=== PATIENT | female | born 1985 | race Caucasian/White ===

== ENCOUNTER 2024-07-19 12:54 | Emergency (ER) | payer OTHER, SELFPAY ==
[2024-07-19 12:57] VITALS: BP 147/90; PULSE 103; RESP 18; TEMP 37.2; O2SAT 98; BMI 21.8
--- NOTE | 2024-07-19 12:59 | ED_ITS ---
HPI - General Adult General Chief complaint: Psychiatric Symptoms Stated complaint: medication Time Seen by Provider: 07/19/24 13:10 Source: patient, family (mother) and RN notes reviewed Mode of arrival: ambulatory Limitations: no limitations History of Present Illness ED Provider: Mckenzie GREEN narrative: 38-year-old female with past medical history significant for anxiety, depression presents for evaluation of ?medication refill. ? The patient reports that she has been in a program for the last 8 years where she has been receiving clonazepam and Adderall. She found out about 2 months ago that this program was closing abruptly. She last received prescriptions for both medications in April of last year and has been trying to use the medication sparingly/she does not run out completely. She has a new appointment with a different program and new prescriber that she believes is on 08/02/2024. However she reports that she was been having increasing anxiety, depression and ?dark thoughts. ? She reports that she occasionally ?just want to disappear. ? She denies any active suicidal ideation or plan. Related Data Previous Rx's ?Medication ?Instructions ?Recorded clonazepam 1 mg tablet 1 - 2 mg (1 - 2 x 1 mg) PO BID 2 07/19/24 weeks #45 tabs dextroamphetamine-amphetamine 20 20 mg PO DAILY #14 tabs 07/19/24 mg tablet (Adderall) Allergies Allergy/AdvReac Type Severity Reaction Status Date / Time Unable to Assess Allergy Verified 07/19/24 13:56 Review of Systems 2 Constitutional: Constitutional: Denies body ache(s), Denies chills and Denies fever(s) ENT: Denies vertigo Cardiovascular: Cardiovascular: Denies chest pain Gastrointestinal: Gastrointestinal: Denies abdominal pain Neurologic: Denies vertigo Psychiatric: Psychiatric: Reports anxiety, Reports depression, Denies auditory hallucinations, Denies visual hallucinations, Denies homicidal ideation and Reports suicidal ideation PMFSH Social History Social History Smoked in Last 30 Days: No Use of substances other than those prescribed or required for medical reasons: No Advance Directives: No Advance Directives Information Provided: Yes Do you have a plan to hurt others: No Plan Patient : No Physical Exam ED Vital Signs: Vital Signs - 24 hr 07/19/24 12:57 07/19/24 14:55 07/19/24 15:45 Temperature 99.0 F 98.0 F Pulse Rate 103 H 68 Respiratory Rate 18 16 16 Blood Pressure 147/90 H 108/67 Pulse Oximetry 98 97 Oxygen Delivery Method Room Air Room Air BMI result Body Mass Index 21.8 Const General: healthy appearing, comfortable, no acute distress, alert and awake Nutritional Appearance: well nourished Orientation/consciousness: patient oriented x3 [facility] Head: Yes normocephalic and Yes atraumatic Eyes Eyelids: Yes eyelids normal Conjunctivae: conjunctivae normal Sclerae: sclerae normal Corneas: corneas normal Pupils: Equal, round and reactive pupils present EOM: EOMs intact bilaterally Neck Neck: Yes full ROM Resp Effort & Inspection: normal respiratory effort, able to speak in complete sentences and not labored Cardio Rate: regular rate Rhythm: regular rhythm Skin General skin exam: elasticity normal Neuro General: patient oriented x3 and CN's II-XI intact bilaterally Cranial nerves: Yes CN's II-XII intact bilaterally, Yes Equal, round and reactive pupils present and Yes Bilaterally intact EOM present Cognition (Neuro): normal cognition Extrem Other: Moving all extremities well without any obvious deformities Course Reevaluation(s) Reevaluation #1: Patient is seen by the care team and cleared for discharge Time: 15:38 Medical Decision Making Medical Decision Making [facility] Narrative: 38-year-old female presents for evaluation and medication refill. I confirmed that her prescription monitoring program does not infection that she was prescribed Adderall and clonazepam. Her last fill prescriptions were in April of last year. The patient seems to appropriately be taking steps to get her outpatient prescribers. I had planned on prescribing her 2 weeks' worth of her medication to [facility] to until her next appointment. However she screened and for passive suicidal ideation and will see the care team. She had become quite upset when learning she had to change to do this. She was able to be brought back to the pot and agreeable to change Differential Diagnosis Differential Diagnoses: The differential diagnosis associated with the presentation includes Anxiety Depression Stress Suicidal ideation Lab Data [facility] Lab Attestation statement: I reviewed the patient's lab results. 07/19/24 14:25 07/19/24 14:25 Labs: Lab Results 07/19/24 07/19/24 Range/Units 13:39 14:25 WBC 3.9 L (4.8-10.8) X10*3/uL RBC 4.00 L (4.20-5.50) X10*6/uL Hgb 12.8 (12.0-16.0) g/dl Hct 36.9 L (37.0-47.0) % MCV 92.3 (80.0-98.0) fL MCH 32.0 (27.0-33.0) pg MCHC 34.7 (31.0-35.0) g/dl RDW 12.1 (11.0-16.0) % Plt Count 190 (160-400) X10*3/uL MPV 10.5 (9.4-12.3) fL Immature Gran % (Auto) 0.3 (0.0-0.4) % Neut % (Auto) 46.5 (45-73) % Lymph % (Auto) 44.4 H (20-40) % [place] % (Auto) 7.5 (2-11) % Eos % (Auto) 0.5 (0-4) % Baso % (Auto) 0.8 (0-2) % Lymph # (Auto) 1.7 (1.2-4.9) X10*3/uL [place] # (Auto) 0.3 (0.1-1.2) X10*3/uL Eos # (Auto) 0.0 (0.0-0.4) X10*3/uL Baso # (Auto) 0.0 (0.0-0.2) X10*3/uL Abs Immat Gran (auto) 0.01 (0.00-0.03) X10*3/uL Absolute Neuts (auto) 1.8 L (2.0-8.3) x10*3/uL Absolute Nucleated RBC 0.000 (0.0-0.012) X10*3/uL Nucleated RBC % (auto) 0.0 (0.0-0.2) /100WBC Sodium 141 (135-145) mmol/L Potassium 3.9 (3.3-5.1) mmol/L Chloride 110 H (96-108) mmol/L Carbon Dioxide 24 (22-29) mmol/L Anion Gap 11 L (12-20) BUN 6 L (9-16) mg/dL Creatinine 0.64 (0.5-1.4) mg/dL Estim Creat Clear Calc 96.1 Estimated GFR > 60 Random Glucose 106 (60-115) mg/dL Calcium 8.7 (8.4-10.2) mg/dL Total Bilirubin 0.3 (0.0-1.0) mg/dL AST 23 (5-31) U/L ALT 17 (0-31) U/L Alkaline Phosphatase 39 (39-117) U/L Total Protein 7.5 (6.5-8.0) g/dL Albumin 4.1 (3.5-5.0) g/dL Urine Color Yellow Urine Appearance Clear Urine pH 8.0 (5.0-9.0) Ur Specific [place] <= 1.005 (1.005-1.025) Urine Protein Negative (Neg-Trace) mg/dL Urine Glucose (UA) Negative (Negative) mg/dL Urine Ketones Negative (Negative) mg/dL Urine Blood Negative (Negative) Urine Nitrite Negative (Negative) Ur Leukocyte Esterase Negative (Negative) Urine Opiates Screen Not Detected (Not Detect) Ur Buprenorphine Scrn Not Detected (Not Detect) ng/mL Ur Oxycodone Screen Not Detected (Not Detect) ng/mL Urine Methadone Screen Not Detected (Not Detect) ng/mL Urine Fentanyl Screen Not Detected (Not Detect) Ur Barbiturates Screen Not Detected (Not Detect) Ur Phencyclidine Scrn Not Detected (Not Detect) Ur Amphetamines Screen Not Detected (Not Detect) U Benzodiazepines Scrn Not Detected (Not Detect) Urine Cocaine Screen Not Detected (Not Detect) U Marijuana (THC) Screen POSITIVE H (Not Detect) Ethyl Alcohol < 10 mg/dL Discharge Plan Discharge Clinical Impression: Acute anxiety, Depression Patient Disposition: Home, Self-Care Instructions: Depression (ED), Anxiety (ED) Additional Instructions: Follow all the instructions of the care team. I sent a 2 week supply of your prescriptions It is important to follow-up with your outpatient providers as soon as possible Return to the ER for any new or worsening symptoms Prescriptions: New clonazepam 1 mg tablet 1 - 2 mg PO BID 14 Days Qty: 45 0RF dextroamphetamine-amphetamine [Adderall] 20 mg tablet 20 mg PO DAILY Qty: 14 0RF Rx Instructions: Partial Fill upon patient request. Interventions: [place]-Suicide Risk Severity Scale Last Done: 07/19/24 14:55 ED Discharge Assessment Last Done: 07/19/24 15:45 Discharge Date/Time: 07/19/24 15:49 Print Language: Macanese
[2024-07-19 13:50] LABS: Appearance Urine Clear; Color Urine Yellow; Glucose Urine UA Negative (Negative); Leukocyte Esterase Urine Negative (Negative); Nitrite Urine Negative (Negative); Specific Gravity - Urine <= 1.005 (1.005-1.025); Urine Blood Negative (Negative); Urine Ketones Negative (Negative); Urine Protein Negative (Neg-Trace)
[2024-07-19 14:01] LABS: Amphetamine Screen Urine Not Detected (Not Detect); Barbiturates, Urine Not Detected (Not Detect); Benzodiazepines Screen Urine Not Detected (Not Detect); Buprenorphine Scr Not Detected (Not Detect); Cannabinoid Screen Urine POSITIVE (Not Detect); Cocaine Screen Urine Not Detected (Not Detect); Fentanyl, urine Not Detected (Not Detect); Methadone Screen, Urine Not Detected (Not Detect); Opiate Screen Urine Not Detected (Not Detect); Oxycodone Screen Urine Not Detected (Not Detect); Phencyclidine Screen Urine Not Detected (Not Detect)
[2024-07-19 14:31] LABS: Basophils Percent Auto 0.8 % (0-2); Eosinophils Percent Auto 0.5 % (0-4); Hematocrit 36.9 % (37.0-47.0); Hemoglobin 12.8 g/dl (12.0-16.0); Imm Gran Abs Auto 0.01 X10*3/uL (0.00-0.03); Imm Gran Pct Auto 0.3 % (0.0-0.4); Lymphocytes Absolute Auto 1.7 X10*3/uL (1.2-4.9); Lymphocytes Percent Auto 44.4 % (20-40); MANUAL DIFF FLAG NO; Mean Corpuscular HGB Conc 34.7 g/dl (31.0-35.0); Mean Corpuscular Volume 92.3 fL (80.0-98.0); Mean Platelet Volume 10.5 fL (9.4-12.3); Monocytes Absolute Auto 0.3 X10*3/uL (0.1-1.2); Monocytes Percent Auto 7.5 % (2-11); Neutrophils Absolute Auto 1.8 x10*3/uL (2.0-8.3); Neutrophils Percent Auto 46.5 % (45-73); Platelet Count 190 X10*3/uL (160-400); Red Cell Distribution Width 12.1 % (11.0-16.0); White Blood Count 3.9 X10*3/uL (4.8-10.8)
[2024-07-19 14:55] VITALS: RESP 16
--- NOTE | 2024-07-19 15:00 | PC.NURSE ---
Judy comes to the Emergency Department today with increased anxiety due to being out of her medications (Adderall and Klonopin). She reports that her providers facility was closed back in February and she has not been able to get a new provider yet. Patient reports that she has an intake appointment in 12 days but needs something to bridge her until then. Patient denies SI, endorses previous thoughts of feeling like life would be better if she was not dealing with everything. Patient denies HI/AH/VH as well. Patient is calm and cooperative, good insight, goal oriented. Patient reports that being brought to the BH pod has been difficult for her and feels she was brought back by a misunderstanding. pt now resting in room at this time
[2024-07-19 15:20] LABS: Alanine Aminotransferase 17 U/L (0-31); Albumin Level 4.1 g/dL (3.5-5.0); Alkaline Phosphatase 39 U/L (39-117); Aspartate Amino Transferase 23 U/L (5-31); Bilirubin Total 0.3 mg/dL (0.0-1.0); Blood Urea Nitrogen 6 mg/dL (9-16); Calcium 8.7 mg/dL (8.4-10.2); Creatinine Clr Calc Pharmacy 96.1; Estimated Glomerular Filt Rate > 60; Ethanol < 10 mg/dL; Glucose Random 106 mg/dL (60-115); Total Protein 7.5 g/dL (6.5-8.0)
[2024-07-19 15:31] LABS: Anion Gap 11 (12-20); Carbon Dioxide 24 mmol/L (22-29); Chloride 110 mmol/L (96-108); Potassium 3.9 mmol/L (3.3-5.1); Sodium 141 mmol/L (135-145)
[2024-07-19 15:45] VITALS: BP 108/67; PULSE 68; RESP 16; TEMP 36.7; O2SAT 97
--- OUTSIDE RECORDS SUMMARY | 2024-07-19 16:07 | XMS_ITS | Encounter Summary ---
Author Organization [facility] Address [address] [place] [address] Phone Care Team Providers Care Casting Assistant Name Role Phone Shelly Chen MD Primary Care Provider Encounter Details Date Type Department Care Team (Late st Contact Info) Description 12/25/2016 Conversion Encounter [facility] [place] [address] [place] [address] Social History Tobacco Use Types Packs/Day Years Used Date Smoking Tobacco: Never Assessed Comments Unknown Sex and Gender Information Value Date Recorded Sex Assigned at Not on file Legal Sex Female 4:26 PM EDT Gender Identity Not on file Sexual Orientation Not on file documented as of this encounter Plan of Treatment Not on file documented as of this encounter Visit Diagnoses Not on filedocumented in this encounter Care Teams Casting Assistant Relationship Specialty Start Date End Date Shelly Chen MD [address] [place] [address] PCP - General 12/19/16 07/23/22 documented as of this encounter
--- OUTSIDE RECORDS SUMMARY | 2024-07-19 16:07 | XMS_ITS | Clinical Summary ---
Author Organization [facility] Address [address] [place] [address] Phone Care Team Providers Care Wetlands Conservation Laborer Name Role Phone Unavailable Primary Care Provider Unavailabl e Immunizations Immunization Administration Dates Next Due DTP 12/17/1992, 9,02/26/1988,1987,1987 HPV, Quadrivalent 07/23/2007 Hep B, ped/adol 05/29/2000,12/16/1999,11/14/1999 Hib (PRP-T) 09/10/1989 MMR 12/16/1999,11/20/1988 OPV 12/17/1992, 9,1987,1987 Td (adult) (MBL), 2 Lf tetan us toxoid, PF, adsorbed 11/14/1999 Unknown Vaccine 06/21/2004 Social History Tobacco Use Types Packs/Day Years Used Date Smoking Tobacco: Never Assessed Comments Unknown Sex and Gender Information Value Date Recorded Sex Assigned at Not on file Legal Sex Female 4:26 PM EDT Gender Identity Not on file Sexual Orientation Not on file Plan of Treatment Health Maintenance Due Date Last Done Comments DTaP,Tdap,and Td Vaccines (6 - Tdap) 11/15/1999 11/14/1999, 12/17/1992, 03/09/1989, Additional history exists Varicella Vaccines (1 of 2 - 13+ 2-dose series) 08/10/2000 HPV Vaccines (2 - 3-dose series) 08/20/2007 07/23/2007 Influenza Vaccines (#1) 2023 COVID-19 Vaccine (1 - season) 2024 HIB Vaccines Completed 09/10/1989 IPV Vaccines Completed 12/17/1992, 02/10, 1987, Additional history exists MMR Vaccines Completed 12/16/1999, 11/20/1988 Hepatitis B Vaccines Completed 05/29/2000, 12/16/1999, 11/14/1999 Hepatitis A Vaccines Aged Out No long er eligible based on patient's age to complete this topic Men B Vaccine Aged Out No longer elig ible based on patient's age to complete this topic Meningococcal Vaccine Aged Out No rusty neymar eligible based on patient's age to complete this topic Pneumococcal Vaccine Aged Out No long er eligible based on patient's age to complete this topic
== END 2024-07-19 15:49 | disposition home or self-care (01) ==
PROVIDERS: Physician Assistant; Emergency Provider Student in an Organized Health Care Education/Training Program; PCP Internal Medicine
DX: F41.1 Generalized anxiety disorder (principal); F43.0 Acute stress reaction; F33.1 Major depressive disorder, recurrent, moderate; Z76.0 Encounter for issue of repeat prescription; Z51.81 Encounter for therapeutic drug level monitoring; Z79.899 Other long term (current) drug therapy
CPT/HCPCS: 36415; 80053; 80307; 81003; 85025; 99285; S9485